=== PATIENT | female | born 1980 | race Caucasian/White ===

== ENCOUNTER 2020-12-06 17:06 | Emergency (ER) | payer BC ==
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
[2020-12-06] MEDS ORDERED: hydrOXYzine HCl 25 MG Tab PO ONE (17:59)
[2020-12-06] MEDS ORDERED: Ketorolac 10 MG Tab PO ONE (17:59)
[2020-12-06] MEDS ORDERED: Silver Sulfadiazine 1% Crm 400 GM Jar TOP ONE (18:00)
[2020-12-06] MEDS ORDERED: Silver Sulfadiazine 1% Crm 50 GM Tube TOP ONE (18:14)
== END 2020-12-06 18:38 | disposition home or self-care (01) ==
LOC: JP.ED 17:06
DX: T24.231A Burn of second degree of right lower leg, initial encounter (principal); X08.8XXA Exposure to other specified smoke, fire and flames, initial encounter; Y93.16 Activity, rowing, canoeing, kayaking, rafting and tubing
CPT/HCPCS: 16020; 99282; A9270

== ENCOUNTER 2021-02-12 02:46 | Emergency (ER) | payer BC, MEDICAID ==
--- NOTE | 2021-02-12 03:19 | EDM.PDOC ---
ED HPI GENERAL MEDICAL PROBLEM - General Chief Complaint: ENT Problem Stated Complaint: TOOTH PAIN Time Seen by Provider: 02/12/21 03:00 Source of Information: Reports: Patient History Limitations: Reports: No Limitations - History of Present Illness INITIAL COMMENTS - FREE TEXT/NARRATIVE: 40-year-old female with ongoing left mandibular dental pain for the past several weeks. A dental exam on resulted in a referral to dental surgery but does not tell March. She feels like it is more painful, slight swelling, and not responding to ibuprofen. No fevers or chills. Onset: Gradual Duration: Week(s): (Pain for several weeks) Location: Reports: Other (Left mandible molars) Associated Symptoms: Reports: No Other Symptoms Left Tooth/Teeth Pain Score (Numeric/FACES): 8 - Related Data Allergies Allergy/AdvReac Type Severity Reaction Status Date / Time No Known Allergies Allergy Verified 02/12/21 02:57 Home Meds: Home Meds busPIRone [Buspar] 1 tab PO BEDTIME 02/12/21 [History] Past Medical History - Past Health History Medical/Surgical History: Denies Medical/Surgical History Psychiatric History: Reports: Anxiety - Infectious Disease History Infectious Disease History: Reports: Chicken Pox Social & Family History - Family History Family Medical History: No Pertinent Family History - Tobacco Use Tobacco Use Status *Q: Never Tobacco User - Caffeine Use Caffeine Use: Reports: Coffee - Recreational Drug Use Recreational Drug Use: No ED ROS ENT - Review of Systems Review Of Systems: See Below Constitutional: Denies: Fever, Chills HEENT: Reports: Dental Pain Respiratory: Denies: Shortness of Breath Cardiovascular: Denies: Chest Pain GI/Abdominal: Denies: Nausea, Vomiting Skin: Reports: No Symptoms Neurological: Reports: No Symptoms ED EXAM, ENT - Physical Exam Exam: See Below Exam Limited By: No Limitations General Appearance: Alert, No Apparent Distress (Looks uncomfortable but not distressed) Mouth/Throat: Other (The second and third molar on the left mandible does appear to have some gingival swelling and erythema, very tender to percussion. No mucosal or buccal swelling) Head: Atraumatic Respiratory/Chest: No Respiratory Distress Neurological: Alert, Oriented Psychiatric: Normal Affect, Normal Mood Skin: Warm, Dry Course - Vital Signs Last Recorded V/S: Last Vital Signs Temp 97.5 F 02/12/21 02:59 Pulse 50 L 02/12/21 02:59 Resp 16 02/12/21 02:59 BP 116/63 02/12/21 02:59 Pulse Ox 99 02/12/21 02:59 - Re-Assessments/Exams Free Text/Narrative Re-Assessment/Exam: 02/12/21 03:17 Patient was given penicillin V K to take 500 mg 4 times a day, naproxen 500 mg twice daily, and 10 Percocet for extra pain control until the antibiotic starts working. Call your dentist on Sunday. Departure - Departure Time of Disposition: 03:27 Disposition: Home, Self-Care 01 Clinical Impression: Dental abscess - Discharge Information Instructions: Dental Abscess Referrals: Valencia Green CNM [Primary Care Provider] - Forms: ED Department Discharge Care Plan Goals: Take antibiotic 4 times a day until gone, instead of ibuprofen take naproxen every 8 hours, continue with Tylenol, and add Percocet for extra pain control if needed for the next several days until the antibiotic starts working. Consider calling your dentist on Sunday or Sunday if not improving satisfactorily. Sepsis Event Note (ED) - Evaluation Sepsis Screening Result: No Definite Risk - Focused Exam Vital Signs: Vital Signs Temp Pulse Resp BP Pulse Ox 02/12/21 02:59 97.5 F 50 L 16 116/63 99
== END 2021-02-12 03:28 | disposition home or self-care (01) ==
LOC: JP.ED 02:46
DX: K04.7 Periapical abscess without sinus (principal)
CPT/HCPCS: 99282